=== PATIENT | female | born 1965 | race Caucasian/White ===

== ENCOUNTER → 2017-01-01 | Outpatient (CLI) | payer BC ==
[~2017-01-01] MED LIST: CHOL1TAB42 PO; IBUP-103 PO; LORA10TA57 PO; MAGN1SOL7 PO; MISCCAP80 PO; OMEG12002 PO; PROG1GEL TOP
--- NOTE | 2017-01-02 08:22 | MAMMOGRAPHY REPORT ---
BILATERAL DIGITAL SCREENING MAMMOGRAM TOMOSYNTHESIS WITH CAD: 01/01/2017 CLINICAL HISTORY: Bilateral screening examination. The patient failed to obtain a breast MRI, which was recommended at the time of previous diagnostic workup on 12/28/2015, at which time the patient also declined additional supplemental mammographic views. TECHNIQUE: Breast tomosynthesis in addition to standard 2D mammography was performed. Current study was also evaluated with a Computer Aided Detection (CAD) system. The MLO views are mildly suboptim al due to inability of the patient to tolerate adequate compression. COMPARISON: Comparison is made to exams dated: 09/14/2015 mammogram, 11/04/2012 mammogram, 10/31/2011 m ammogram, 04/17/2011 mammogram, 04/10/2011 mammogram - [facility], and 05/20/2009. BREAST COMPOSITION: There are scattered areas of fibroglandular density in both breasts. There hav e been involutional changes compared to prior available mammograms. FINDINGS: The left superior asymmetry has effaced and now appears similar to the 05/20/2009, 2010 an 2011 mammograms, suggesting it represented normal overlapping fibrolinear glandular tissue. There is decreasing nodularity throughout the right breast. No new suspicious mass, architectural distor tion or cluster of microcalcifications is seen. IMPRESSION: ACR BI-RADS CATEGORY 1: NEGATIVE Effacement of the left superior asymmetry, confirming normal overlapping fibroglandular tissue. The re is no mammographic evidence of malignancy, within the limitations of the exam. A 1 year screening mammogram is recommended. The patient will receive written notification of the results. Approximately 10% of breast cancers are not detected with mammography. A negative mammographic repor t should not delay biopsy if a clinically suggestive mass is present. Geovanna Vaughn M.D. ay/:01/01/2017 15:47:33 Field Sampling Technician: Leigh Ann SALAS(Janette)(M), [facility] letter sent: Normal 1/2 BI-RADS Code: ACR BI-RADS Category 1: Negative
== END | disposition home or self-care (01) ==
LOC: C.MAMM 14:59
PROVIDERS: ATTEND Family Medicine
DX: Z12.31 Encounter for screening mammogram for malignant neoplasm of breast (principal); N64.9 Disorder of breast, unspecified